=== PATIENT | male | born 1950 | race Caucasian/White ===

== ENCOUNTER 2021-10-29 07:28 | Emergency (ER) | payer OTHER ==
--- OUTSIDE RECORDS SUMMARY | 2021-10-29 07:30 | XMS REPORT | Continuity of Care Document ---
:1950 Author Organization [facility] t Address [address] Thakkar [address] [place] [id number] Care Team Providers Name Role Phone Unavailable Unavailable Unavailable Problems This patient has no known problems. Allergies, Adverse Reactions, Alerts This patient has no known allergies or adverse reactions. Medications This patient has no known medications. Procedures This patient has no known procedures. Encounters Start End Encounter Admission Attending Care Care Encounter Source Date/Time Date/Time Type Type Clinicians Facility Department ID 2020-10-06 2020-10-06 Outpatient [facility] [id number] 00:00:00 00:00:[address] 2020-09-15 2020-09-15 Outpatient [facility] [id number] 00:00:00 00:00:[address] Results This patient has no known results.
--- NOTE | 2021-10-29 08:35 | EDPHYS ---
Physician Documentation [facility] Name: Jayjay Serna Age: 70 yrs Sex: Male : 1950 Arrival Date: 10/29/2021 Time: 07:29 Bed 5 Private MD: Conrado Rao V ED Physician Clay Medina HPI: 10/29 08:26 This 70 yrs old Male presents to ER via Ambulatory with complaints of Blurred kerri Vision. 08:26 to the right eye, blurry vision, no diplopia. Onset: The symptoms/episode kerri began/occurred just prior to arrival. Duration: the symptoms last a few minutes, occurred when went outside , resolved when back inside. Aggravated by nothing. Alleviated by covering eye. Associated signs and symptoms: Pertinent positives: dizziness. pt has cataract surgery on left eye, not right , blood glucose high this morning, went outside, right eye got blurry in the cold, resoled when went inside. Patient wears glasses. Severity of symptoms: At their worst the symptoms were mild in the emergency department the symptoms have resolved and did so just prior to arrival. Historical: - Allergies: 07:38 No Known Allergies; ww - PMHx: 07:38 Hypertensive disorder; Diabetes mellitus; Cerebrovascular accident; ww Hypercholesterolemia; - PSHx: 07:38 abdominal fistula; ww - Immunization history:: Adult Immunizations up to date. - Social history:: Smoking status: Patient denies any tobacco usage or history of. - Family history:: not pertinent. ROS: 08:26 Constitutional: Negative for fever, chills, and weight loss, ENT: Negative for injury, kerri pain, and discharge, Neck: Negative for injury, pain, and swelling, Cardiovascular: Negative for chest pain, palpitations, and edema, Respiratory: Negative for shortness of breath, cough, wheezing, and pleuritic chest pain, Abdomen/GI: Negative for abdominal pain, nausea, vomiting, diarrhea, and constipation, Back: Negative for injury and pain, : Negative for injury, bleeding, discharge, and swelling, MS/Extremity: Negative for injury and deformity, Skin: Negative for injury, rash, and discoloration, Neuro: Negative for headache, weakness, numbness, tingling, and seizure, Psych: Negative for depression, anxiety, suicide ideation, homicidal ideation, and hallucinations, Allergy/Immunology: Negative for hives, rash, and allergies, Endocrine: Negative for neck swelling, polydipsia, polyuria, polyphagia, and marked weight changes, Hematologic/Lymphatic: Negative for swollen nodes, abnormal bleeding, and unusual bruising. 08:26 Eyes: Positive for blurry vision, pain, photophobia, visual disturbance, of the iris of right eye. Exam: 08:26 Constitutional: This is a well developed, well nourished patient who is awake, alert, kerri and in no acute distress. Head/Face: Normocephalic, atraumatic. Eyes: Pupils equal round and reactive to light, extra-ocular motions intact. Lids and lashes normal. Conjunctiva and sclera are non-icteric and not injected. Cornea within normal limits. Periorbital areas with no swelling, redness, or edema. ENT: Nares patent. No nasal discharge, no septal abnormalities noted. Tympanic membranes are normal and external auditory canals are clear. Oropharynx with no redness, swelling, or masses, exudates, or evidence of obstruction, uvula midline. Mucous membranes moist. Neck: Trachea midline, no thyromegaly or masses palpated, and no cervical lymphadenopathy. Supple, full range of motion without nuchal rigidity, or vertebral point tenderness. No Meningismus. Chest/axilla: Normal chest wall appearance and motion. Nontender with no deformity. No lesions are appreciated. Cardiovascular: Regular rate and rhythm with a normal S1 and S2. No gallops, murmurs, or rubs. Normal PMI, no JVD. No pulse deficits. Respiratory: Lungs have equal breath sounds bilaterally, clear to auscultation and percussion. No rales, rhonchi or wheezes noted. No increased work of breathing, no retractions or nasal flaring. Abdomen/GI: Soft, non-tender, with normal bowel sounds. No distension or tympany. No guarding or rebound. No evidence of tenderness throughout. Back: No spinal tenderness. No costovertebral tenderness. Full range of motion. Male : Normal genitalia with no discharge or lesions. Skin: Warm, dry with normal turgor. Normal color with no rashes, no lesions, and no evidence of cellulitis. MS/ Extremity: Pulses equal, no cyanosis. Neurovascular intact. Full, normal range of motion. Neuro: Awake and alert, GCS 15, oriented to person, place, time, and situation. Cranial nerves II-XII grossly intact. Motor strength 5/5 in all extremities. Sensory grossly intact. Cerebellar exam normal. Normal gait. Psych: Awake, alert, with orientation to person, place and time. Behavior, mood, and affect are within normal limits. 08:26 Eyes: Periorbital structures: appear normal, no acute changes, no abrasion, no cellulitis, no contusion, no ecchymosis, no erythema, no laceration, no swelling, Pupils: equal, round, and reactive to light and accomodation, Extraocular movements: intact throughout, Conjunctiva: normal, no acute changes, no chemosis, no excoriation, no exudate, no injection, no subconjunctival hemorrhage no abnormal tearing, Corneas: no acute changes, no evidence of abrasion, no foreign body, Sclera: no appreciated abnormality, no acute changes, Anterior chamber: normal, no acute changes, Lids and lashes: appear normal, no acute changes, Visual stubbs: are intact, no acute changes, Nystagmus: is not appreciated. Vital Signs: 07:37 BP 157 / 73; Pulse 82; Resp 18; Temp 98.1; Pulse Ox 98% on R/A; Weight 97.52 kg; Height ww 6 ft. 0 in. (182.88 cm); Pain 0/10; 07:55 BP 144 / 72; Pulse 74; Resp 20 S; Pulse Ox 98% on R/A; Pain 0/10; jg9 07:37 Body Mass Index 29.16 (97.52 kg, 182.88 cm) MDM: 07:49 Patient medically screened. [facility] 08:31 Differential diagnosis: Acute glaucoma in right eye. Data reviewed: vital signs, nurses kerri notes. Data interpreted: monitor and storage bin tender: not applicable for this patient encounter. rate is 74 beats/min. Counseling: I had a detailed discussion with the patient and/or guardian regarding: the historical points, exam findings, and any diagnostic results supporting the discharge/admit diagnosis. 03 08:33 Order name: Glucose, Ancillary Testing EDMS 10/29 08:14 Order name: Blood Glucose Level; Complete Time: 08:33 kerri Administered Medications: No medications were administered Point of Care Testing: Blood Glucose: 08:21 Blood Glucose: 178 mg/dL; jg9 Ranges: Critical Glucose Levels:Adult <50 mg/dl or >400 mg/dl <40 mg/dl or >180 mg/dl Disposition Summary: 10/29/21 08:35 Discharge Ordered Location: Home kerri Problem: new kerri Symptoms: have improved kerri Condition: Stable kerri Diagnosis - Other visual disturbances - blurry vision kerri - Type 2 diabetes mellitus with hyperglycemia kerri Followup: kerri - With: Conrado Rao MD - When: 2 - 3 days - Reason: Recheck today's complaints, Continuance of care, Re-evaluation by your physician Discharge Instructions: - Discharge Summary Sheet kerri - Blurred Vision, Adult kerri - Hyperglycemia kerri - Visual Disturbances kerri - Blood Glucose Monitoring, Adult kerri - Diabetes Mellitus and Exercise kerri Forms: - Medication Reconciliation Form kerri - Thank You Letter kerri - Antibiotic Education kerri - Prescription Opioid Use kerri Signatures: Dispatcher [employer] Clay Lucero MD MD cha Wood, Whitney RN RN ww
--- NOTE | 2021-10-29 08:35 | ER ---
Nurse's Notes [facility] Name: Jayjay Serna Age: 70 yrs Sex: Male : 1950 Arrival Date: 10/29/2021 Time: 07:29 Bed 5 Private MD: Conrado Rao V Diagnosis: Other visual disturbances-blurry vision;Type 2 diabetes mellitus with hyperglycemia Presentation: 10/29 07:37 Chief complaint: Patient states: Blurry vision in right eye with double vision that ww started this morning after going outside. Coronavirus screen: Vaccine status: Client denies travel out of the [place] in the last 14 days. Ebola Screen: Patient denies travel to an Ebola-affected area in the 21 days before illness onset. Initial Sepsis Screen: Does the patient meet any 2 criteria? No. Patient's initial sepsis screen is negative. Does the patient have a suspected source of infection? No. Patient's initial sepsis screen is negative. Risk Assessment: Do you want to hurt yourself or someone else? Patient reports no desire to harm self or others. Onset of symptoms was October 29, 2021. 07:37 Method Of Arrival: Ambulatory ww 07:37 Acuity: LIYAH 3 ww Triage Assessment: 07:38 General: Appears in no apparent distress. Behavior is calm, cooperative. Pain: Denies ww pain. EENT: Eyes closing right eye due to being dizzy. Neuro: Level of Consciousness is awake, alert, obeys commands, Oriented to person, place, time, situation, Moves all extremities. Gait is steady, Speech is normal, Facial symmetry appears normal. Cardiovascular: Capillary refill < 3 seconds. Respiratory: Airway is patent Respiratory effort is even, unlabored, Respiratory pattern is regular, symmetrical. GI: No signs and/or symptoms were reported involving the gastrointestinal system. : No signs and/or symptoms were reported regarding the genitourinary system. Derm:. Musculoskeletal: No signs and/or symptoms reported regarding the musculoskeletal system. Historical: - Allergies: 07:38 No Known Allergies; ww - PMHx: 07:38 Hypertensive disorder; Diabetes mellitus; Cerebrovascular accident; ww Hypercholesterolemia; - PSHx: 07:38 abdominal fistula; ww - Immunization history:: Adult Immunizations up to date. - Social history:: Smoking status: Patient denies any tobacco usage or history of. - Family history:: not pertinent. Screenin:01 Abuse screen: Denies threats or abuse. Denies injuries from another. Nutritional jg9 screening: No deficits noted. Tuberculosis screening: No symptoms or risk factors identified. Fall Risk None identified. Assessment: 08:00 Reassessment: No changes from previously documented assessment. Neuro: Reports blurred jg9 vision in outer aspect of conjuctiva of right eye, iris of right eye and inner aspect of conjuctiva of right eye since this morning Denies. Vital Signs: 07:37 BP 157 / 73; Pulse 82; Resp 18; Temp 98.1; Pulse Ox 98% on R/A; Weight 97.52 kg; Height ww 6 ft. 0 in. (182.88 cm); Pain 0/10; 07:55 BP 144 / 72; Pulse 74; Resp 20 S; Pulse Ox 98% on R/A; Pain 0/10; jg9 07:37 Body Mass Index 29.16 (97.52 kg, 182.88 cm) ED Course: 07:29 Patient arrived in ED. as 07:29 Conrado Rao MD is Private Physician. as 07:38 Triage completed. ww 07:38 Arm band placed on left wrist. ww 07:49 Clay Medina MD is Attending Physician. [facility] 08:00 Rabia Ferrera, RN is Primary Nurse. jg9 08:01 Patient has correct armband on for positive identification. sitting in recliner. jg9 08:33 Conrado Rao MD is Referral Physician. kerri 08:51 No provider procedures requiring assistance completed. jg9 08:52 IV discontinued. jg9 Administered Medications: No medications were administered Point of Care Testing: Blood Glucose: 08:21 Blood Glucose: 178 mg/dL; jg9 Ranges: Outcome: 08:35 Discharge ordered by . kerri 08:51 Discharged to home ambulatory. jg9 08:51 Condition: stable 08:51 Discharge instructions given to patient, Instructed on discharge instructions, follow up and referral plans. Demonstrated understanding of instructions, follow-up care. 08:52 Patient left the ED. jg9 Signatures: Clay Medina MD MD cha Martinez, Amelia as Gilmore, Jennifer, RN RN jg9 Joann Arnold RN RN ww
[2021-10-29 09:04] VITALS: TEMP 98.1; O2SAT 98
[2021-10-29 09:06] VITALS: BP 144/72
== END 2021-10-29 08:52 | disposition home or self-care (01) ==
LOC: ER 07:28
DX: E11.65 Type 2 diabetes mellitus with hyperglycemia (principal); I10 Essential (primary) hypertension; Z86.73 Personal history of transient ischemic attack (TIA), and cerebral infarction without residual deficits
CPT/HCPCS: 82947; 99282

== ENCOUNTER 2023-01-23 15:00 | Observation (INO) | payer OTHER ==
[2023-01-23 15:57] LABS: Absolute Lymphocytes (CBC) 1.9 K/uL (0.7-4.9); Hematocrit 42.7 % (39.6-49.0); Lymphocytes % 20.3 % (15.3-44.8); MCV 88.3 fL (80-100); MPV 7.7 fL (7.6-11.3); Protime INR 0.98; RBC Red Blood Cell Count 4.83 M/uL (4.33-5.43)
[2023-01-23 16:13] LABS: ALT/SGPT 63 U/L (16-61); AST/SGOT 37 U/L (15-37); Albumin 4.1 g/dL (3.4-5.0); Alkaline Phosphatase 95 U/L (45-117); BUN Blood Urea Nitrogen 19 mg/dL (7-18); Bicarbonate 28 mEq/L (21-32); Bilirubin Direct < 0.1 mg/dL (0-0.2); Bilirubin Indirect, Calculated ND mg/dL (0.2-0.8); Bilirubin Total 0.3 mg/dL (0.2-1.0); Glomerular Filtration Rate 62 ml/min (=/>90); Glucose Level 326 mg/dL (74-106); NT PRO-BNP 20 pg/mL (<125); Potassium 4.1 mEq/L (3.5-5.1); Protein, Total 8.1 g/dL (6.4-8.2); Sodium Level 132 mEq/L (136-145); Troponin High Sensitivity 13.6 pg/mL (<58.9)
--- NOTE | 2023-01-23 16:13 | RAD REPORT ---
EXAM DESCRIPTION: RAD - Chest Single View - 01/23/2023 4:02 pm CLINICAL HISTORY: SOB Chest pain. COMPARISON: Chest Pa And Lat (2 Views) dated 02/22/2016; CHEST SINGLE VIEW dated 12/14/2009; CHEST PA A ND LAT 2 VIEW dated 10/09/1998 FINDINGS: Portable technique limits examination quality. The lungs are grossly clear. The heart is normal in size. No displaced fractures. IMPRESSION: No acute intrathoracic process suspected.
[2023-01-23 16:18] LABS: Specific Gravity 1.019 (1.005-1.030); Urine Bacteria None Seen /HPF (<20); Urine Bilirubin NEGATIVE (Negative); Urine Blood Negative (Negative); Urine Clarity Clear (Clear); Urine Color Yellow (Yellow); Urine Glucose 4+ (Over) (Negative); Urine Protein NEGATIVE (Negative); Urine RBC <5 /HPF (None Seen); Urine Urobilinogen Normal (Normal)
[2023-01-23] MEDS ORDERED: NA CHLORIDE 0.9% 1,000 ML ONE ×2 (16:55→22:18)
[2023-01-23] MEDS ORDERED: INSULIN -REGULAR HUMAN 50 UNIT/0.5 ML ML ONE (16:57)
--- NOTE | 2023-01-23 18:05 | RAD REPORT ---
EXAM DESCRIPTION: CT - Head Brain Wo Cont - 01/23/2023 5:47 pm CLINICAL HISTORY: HEADACHE Headache, drowsiness COMPARISON: Head Brain Wo Cont dated 02/22/2016 TECHNIQUE: All CT scans are performed using dose optimization technique as appropriate and may inclu de automated exposure control or mA/KV adjustment according to patient size. FINDINGS: No intracranial hemorrhage, hydrocephalus or extra-axial fluid collection.Moderate brain a trophy.No areas of brain edema or evidence of midline shift. Heavy right vertebral atherosclerosis. F ocal oblong soft tissue hyperdensity superior to the right orbit. The paranasal sinuses and mastoids are clear. The calvarium is intact. IMPRESSION: No acute intracranial abnormality.
--- NOTE | 2023-01-23 18:09 | RAD REPORT ---
EXAM DESCRIPTION: CT - Chest For Pe Angio - 01/23/2023 5:53 pm CLINICAL HISTORY: Chest pain. SOB COMPARISON: No comparisons TECHNIQUE: CT angiogram of the pulmonary arteries was performed with MIP. All CT scans are performed using dose optimization technique as appropriate and may include automated exposure control or mA/KV adjustment according to patient size. FINDINGS: No evidence of pulmonary thromboembolism. No acute aortic finding demonstrated. The lungs are mildly emphysematous but clear. No significant pericardial or pleural fluid. No concerning bony finding. IMPRESSION: No evidence of pulmonary thromboembolism. Mild diffuse COPD.
[2023-01-23] MEDS ORDERED: ACETAMINOPHEN 500 MG TAB ONE (18:18)
[2023-01-23] MEDS ORDERED: HYDRALAZINE HCL 20 MG/ML VIAL ONE (18:52)
--- NOTE | 2023-01-23 19:04 | RAD REPORT ---
EXAM DESCRIPTION: US - Extrem Venous W Compress John - 01/23/2023 6:58 pm CLINICAL HISTORY: PAIN Bilateral leg edema and swelling. COMPARISON: No comparisons TECHNIQUE: Real-time sonographic interrogation of the left and right lower extremity deep venous sys tems was performed. FINDINGS: Normal compressibility, flow augmentation, phasic flow and spontaneous flow is identified in both the left and right lower extremity deep venous systems. IMPRESSION: No sonographic evidence of left or right lower extremity deep venous thrombosis.
[2023-01-23] MEDS ORDERED: LORazepam 2 MG/ML VIAL ONE (20:02)
[2023-01-23] MEDS ORDERED: cloNIDine HCL 0.1 MG TAB ONE (20:52)
--- NOTE | 2023-01-23 21:13 | EDPHYS ---
Physician Documentation [facility] Name: Jayjay Serna Age: 72 yrs Sex: Male : 1950 Arrival Date: 01/23/2023 Time: 15:00 Bed 14 Private MD: Conrado Rao V ED Physician Clay Medina HPI: 01/23 15:25 This 72 yrs old Male presents to ER via Ambulatory with complaints of Shortness Of cp Breath. 15:25 The patient has shortness of breath with light activity. Onset: The symptoms/episode cp began/occurred last week, hx of surgery, bilateral eye lift, this past Sunday. 15:25 Duration: The symptoms are continuous, and are steadily getting worse. Associated signs cp and symptoms: Pertinent positives: headache, Pertinent negatives: chest pain, productive cough, fever, vomiting. Severity of symptoms: in the emergency department the symptoms are unchanged despite home interventions. Historical: - Allergies: 15:13 No Known Allergies; aa5 - Home Meds: 21:23 amlodipine oral [Active]; carvedilol oral [Active]; losartan oral [Active]; Plavix Oral mb9 [Active]; Aspirin Oral [Active]; - PMHx: 15:13 Cerebrovascular accident; diabetes mellitus; Hypercholesterolemia; Hypertensive aa5 disorder; - PSHx: 15:13 abdominal fistula; aa5 - Immunization history:: Adult Immunizations unknown. - Social history:: Smoking status: Patient denies any tobacco usage or history of. ROS: 15:30 Constitutional: Negative for body aches, chills, fever, poor PO intake. cp 15:30 Eyes: Negative for injury, pain, redness, and discharge. cp 15:30 ENT: Negative for drainage from ear(s), ear pain, sore throat, difficulty swallowing, difficulty handling secretions. 15:30 Cardiovascular: Negative for chest pain, edema, palpitations. 15:30 Respiratory: Positive for shortness of breath, on exertion. Negative for cough, wheezing. 15:30 Abdomen/GI: Negative for abdominal pain, vomiting, diarrhea, constipation. 15:30 : Negative for urinary symptoms. 15:30 Skin: Negative for rash. 15:30 Neuro: Positive for headache, Negative for altered mental status, numbness, speech changes, syncope, weakness. 15:30 All other systems are negative. Exam: 15:35 Constitutional: The patient appears in no acute distress, alert, awake, cp non-diaphoretic, non-toxic, well developed, well nourished, overweight 15:35 Head/Face: Normocephalic, atraumatic. cp 15:35 Eyes: Periorbital structures: cellulitis, is not appreciated, swelling, that is moderate, bilaterally, ecchymosis, that is moderate, bilaterally, Pupils: equal, round, and reactive to light and accomodation, Extraocular movements: intact throughout, Conjunctiva: normal, no exudate, no injection, Sclera: no appreciated abnormality, Lids and lashes: appear normal, bilaterally. 15:35 ENT: External ear(s): are unremarkable, Nose: is normal, Mouth: Lips: moist, Oral mucosa: pink and intact, moist, Posterior pharynx: is normal, airway is patent, no erythema, no exudate. 15:35 Neck: ROM/movement: is normal, is supple, without pain, no range of motions limitations, no meningismus, no nuchal rigidity. 15:35 Chest/axilla: Inspection: normal. 15:35 Cardiovascular: Rate: normal, Rhythm: regular, Edema: is not appreciated, JVD: is not appreciated. 15:35 Respiratory: the patient does not display signs of respiratory distress, Respirations: normal, no use of accessory muscles, no retractions, labored breathing, is not present, Breath sounds: are clear throughout, no decreased breath sounds, no stridor, no wheezing. 15:35 Abdomen/GI: Inspection: abdomen appears normal, Palpation: abdomen is soft and non-tender, in all quadrants. 15:35 Back: pain, is absent, ROM is normal. 15:35 Skin: cellulitis, is not appreciated, no rash present. 15:35 Neuro: Orientation: to person, place \T\ time. Mentation: is normal, Cerebellar function: Romberg testing is negative, Motor: moves all fours, strength is normal, Sensation: is normal. 15:43 ECG was reviewed by the Attending Physician. cp 20:57 ECG was reviewed by the Attending Physician. cp 21:53 ECG was reviewed by the Attending Physician. cp Vital Signs: 15:13 BP 163 / 82; Pulse 95; Resp 16 S; Temp 97.3(TE); Pulse Ox 97% on R/A; Weight 104.33 kg aa5 (R); Height 6 ft. 0 in. (R); 15:50 BP 166 / 89; Pulse 74; Resp 18; Pulse Ox 95% on R/A; mb9 17:12 BP 165 / 84; Pulse 70; Resp 18; Pulse Ox 98% on R/A; mb9 18:42 BP 181 / 71; Pulse 93; Resp 18; Pulse Ox 99% on R/A; mb9 19:50 BP 195 / 70; Pulse 90; Resp 18; Pulse Ox 98% on R/A; mb9 20:41 BP 199 / 79; Pulse 115; Resp 18; Pulse Ox 99% on R/A; mb9 21:22 BP 186 / 86; Pulse 84; Resp 18; Pulse Ox 98% on R/A; mb9 22:00 BP 188 / 81; Pulse 105; Resp 18; Pulse Ox 100% on R/A; mb9 23:08 BP 117 / 57; Pulse 76; Resp 16; Pulse Ox 95% on R/A; Pain 0/10; mb9 23:19 BP 134 / 64; Pulse 84; Resp 16; Pulse Ox 95% on R/A; mb9 15:13 Body Mass Index 31.19 (104.33 kg, 182.88 cm) aa5 23:08 Pain Scale: Adult mb9 MDM: 15:14 Patient medically screened. cp 16:00 Differential diagnosis: Anemia Anxiety Reaction asthma, Bronchitis CHF exacerbation, cp Chronic Obstructive Pulmonary Disease Myocardial Infarction pneumonia, Pneumothorax pulmonary edema, Pulmonary Embolism Sepsis Unstable Angina. 21:55 Data reviewed: vital signs, nurses notes, lab test result(s), EKG, radiologic studies, cp CT scan, plain films. 21:55 Consideration of Admission/Observation Patient was admitted/placed on observation. cp Management of patient was discussed with the following: Primary Care Provider: DR Rao called and msg left on voicemail \T\[id number]. I considered the following discharge prescriptions or medication management in the emergency department Medications were administered in the Emergency Department. See MAR. Independent interpretation of the following test(s) in the Emergency Department EKG: See my EKG interpretation above. Counseling: I had a detailed discussion with the patient and/or guardian regarding: the historical points, exam findings, and any diagnostic results supporting the discharge/admit diagnosis, lab results, radiology results. 01/23 15:22 Order name: Basic Metabolic Panel; Complete Time: 16:33 cp 01/23 16:33 Interpretation: Normal except: NA 132; GLUC 326; BUN 19; GFR 62. cp 01/23 15:22 Order name: CBC with Diff; Complete Time: 16:33 cp 01/23 19:01 Interpretation: Reviewed. 01/23 15:22 Order name: LFT's; Complete Time: 16:33 cp 01/23 19:01 Interpretation: Normal except: ALT 63; GLOB 4.0; A/G 1.0. cp 01/23 15:22 Order name: Magnesium; Complete Time: 16:33 cp 01/23 15:22 Order name: NT PRO-BNP; Complete Time: 16:33 cp 01/23 15:22 Order name: PT-INR; Complete Time: 16:33 cp 01/23 15:22 Order name: Troponin HS; Complete Time: 16:33 cp 01/23 15:22 Order name: Urinalysis W/Microscopic; Complete Time: 16:33 01/23 19:01 Interpretation: Normal except: UGLUC 4+ (Over). cp 01/23 16:38 Order name: D-Dimer; Complete Time: 17:28 cp 01/23 17:29 Interpretation: Reviewed. 01/23 16:38 Order name: LAB Add On 01/23 18:53 Order name: Glucose, Ancillary Testing; Complete Time: 19:00 EDMS 01/23 19:00 Interpretation: Abnormal: GLUC,ANCIL 249. cp 01/23 21:56 Order name: Troponin HS cp 01/23 22:38 Order name: Glucose, Ancillary Testing EDMS 01/23 23:13 Order name: Basic Metabolic Panel EDMS 01/23 23:13 Order name: Basic Metabolic Panel EDMS 01/23 23:13 Order name: CBC with Automated Diff EDMS 01/23 23:14 Order name: CBC with Automated Diff EDMS 01/23 23:14 Order name: Troponin High Sensitivity EDMS 01/23 23:14 Order name: Troponin High Sensitivity EDMS 01/23 23:14 Order name: Troponin High Sensitivity EDMS 01/24 01:35 Order name: Glucose, Ancillary Testing EDMS 01/24 05:54 Order name: Glucose, Ancillary Testing EDMS 01/24 07:33 Order name: Glucose, Ancillary Testing EDMS 01/24 11:17 Order name: Glucose, Ancillary Testing EDMS 01/24 16:12 Order name: Glucose, Ancillary Testing EDMS 01/23 15:22 Order name: XRAY Chest (1 view); Complete Time: 16:33 cp / 15:22 Order name: CT Head Brain wo Cont; Complete Time: 18:09 cp / 16:44 Order name: US Extremity Venous W Compression John; Complete Time: 19:14 cp 01/23 19:15 Interpretation: Report reviewed. cp 01/23 17:34 Order name: CT Chest For PE Angio; Complete Time: 18:42 cp 01/23 15:22 Order name: EKG; Complete Time: 15:22 cp 01/23 23:13 Order name: EKG Electrocardiogram EDMS 01/23 23:13 Order name: EKG Electrocardiogram EDMS 01/23 23:13 Order name: EKG Electrocardiogram EDMS 01/23 23:13 Order name: EKG Electrocardiogram EDMS 01/23 15:22 Order name: Cardiac monitoring; Complete Time: 15:27 cp 01/23 15:22 Order name: EKG - Nurse/Tech; Complete Time: 15:48 cp 01/23 15:22 Order name: IV Saline Lock; Complete Time: 15:48 cp 01/23 15:22 Order name: Labs collected and sent; Complete Time: 15:48 cp 01/23 15:22 Order name: O2 Per Protocol; Complete Time: 15:27 cp 01/23 15:22 Order name: O2 Sat Monitoring; Complete Time: 15:27 cp 01/23 20:51 Order name: EKG - Nurse/Tech; Complete Time: 20:57 cp 01/23 22:02 Order name: Accucheck Blood Glucose; Complete Time: 22:53 cp EC:43 Rate is 87 beats/min. Rhythm is regular. IA interval is normal. QRS interval is normal. cp QT interval is normal. T waves are Inverted in lead aVR. Interpreted by me. Reviewed by me. 20:57 Rate is 91 beats/min. Rhythm is regular. IA interval is normal. QRS interval is normal. cp QT interval is normal. T waves are Inverted in lead aVR. Interpreted by me. Reviewed by me. 21:53 Rate is 110 beats/min. Rhythm is regular. IA interval is normal. QRS interval is cp normal. QT interval is normal. T waves are Inverted in leads aVL, aVR. Interpreted by me. Reviewed by me. Administered Medications: 16:57 Drug: NS 0.9% IV 250 ml Route: IV; Rate: bolus; Site: right antecubital; mb9 16:57 Drug: Insulin Regular Human Sub-Q 10 units {Co-Signature: db (Megan Washington RN).} mb9 Route: Sub-Q; Site: right upper arm; 18:18 Follow up: Response: No adverse reaction mb9 18:10 Drug: Acetaminophen PO 1000 mg Route: PO; mb9 18:43 Follow up: Response: No adverse reaction mb9 18:52 Drug: hydrALAZINE IVP 10 mg Route: IVP; Site: right antecubital; mb9 19:52 Follow up: Response: No adverse reaction mb9 20:00 Drug: Ativan IVP 0.5 mg Route: IVP; Site: right antecubital; mb9 20:36 Follow up: Response: No adverse reaction mb9 20:42 Not Given (Physician Discretion): cloNIDine PO 0.1 mg PO once cp 20:55 Drug: cloNIDine PO 0.2 mg Route: PO; mb9 21:22 Follow up: Response: No adverse reaction mb9 22:36 Drug: Labetalol IV 20 mg Route: IV; Rate: calculated rate; Site: right antecubital; mb9 22:53 Follow up: Response: No adverse reaction mb9 22:36 Drug: NS 0.9% IV 500 ml Route: IV; Rate: 100 ml/hr; Site: right antecubital; mb9 Disposition Summary: 01/23/23 21:56 Hospitalization Ordered Hospitalization Status: Observation cp Provider: Conrado Rao cp Condition: Stable(01/23/23 21:56) cp Problem: new(01/23/23 21:56) cp Symptoms: have improved(01/23/23 21:56) cp Bed/Room Type: Standard cp Location: Telemetry/MedSurg (observation)(01/24/23 16:15) [facility] Room Assignment: 423(01/24/23 16:15) [facility] Diagnosis - Hypertensive heart disease without heart failure(01/23/23 21:56) cp Forms: - Medication Reconciliation Form cp - SBAR form cp Signatures: Dispatcher [employer] EDMS Claudia Cornell RN RN Nathalia Shields, RN RN aa5 Clay Muse PA PA cp Angel Ambrocio, RN RN ja1 Carolina, Grace Bustamante, RN RN mb9 Megan Washington RN db Corrections: (The following items were deleted from the chart) 21:39 21:13 Home cp cp 21:39 21:13 new cp cp 21:39 21:13 have improved cp cp 21:39 21:13 Stable cp cp 21:39 21:13 Headache cp cp 21:39 21:13 Hypertensive heart disease without heart failure cp cp 21:39 21:13 Shortness of breath cp cp 21:39 21:13 Diabetes mellitus due to underlying condition with hyperglycemia cp 23:07 21:56 Telemetry/MedSurg (observation) [facility] : 21:56 cp 01/24 16:15 01/23 23:07 [facility] ER HOLD [facility] 01/24 16:15 01/23 23:07 ERHOLD- [facility] 01/25 15:42 01/24 15:25 This 72 yrs old Male presents to ER via Ambulatory with complaints of cp Shortness Of Breath. cp 01/25 15:42 01/24 15:25 The patient has shortness of breath with light activity, cp cp 01/25 15:42 01/24 15:25 Onset: The symptoms/episode began/occurred last week, hx of surgery, cp bilateral eye lift, this past Sunday, cp 01/25 16:38 06 15:25 Associated signs and symptoms: Pertinent negatives: chest pain, productive cp cough, fever, vomiting, cp
--- NOTE | 2023-01-23 21:13 | ER ---
Nurse's Notes [facility] Name: Jayjay Serna Age: 72 yrs Sex: Male : 1950 Arrival Date: 01/23/2023 Time: 15:00 Bed 14 Private MD: Conrado Rao V Diagnosis: Hypertensive heart disease without heart failure Presentation: 01/23 15:13 Chief complaint: Patient states: eye lift sx on Sunday, today has been feeling SOB and aa5 with headache. 15:13 Method Of Arrival: Ambulatory aa5 15:13 Coronavirus screen: shortness of breath. Ebola Screen: [facility] denies [facility] in the 21 days before illness onset. Initial Sepsis Screen: Does the patient meet any 2 criteria? No. Patient's initial sepsis screen is negative. Does the patient have a suspected source of infection? No. Patient's initial sepsis screen is negative. Risk Assessment: Do you want to hurt yourself or someone else? Patient reports no desire to harm self or others. Onset of symptoms was January 23, 2023. 15:13 Acuity: LIYAH 3 aa5 Triage Assessment: 01/24 18:02 Respiratory: the patient has mild shortness of breath. sg5 Historical: - Allergies: 01/23 15:13 No Known Allergies; aa5 - Home Meds: 21:23 amlodipine oral [Active]; carvedilol oral [Active]; losartan oral [Active]; Plavix Oral mb9 [Active]; Aspirin Oral [Active]; - PMHx: 15:13 Cerebrovascular accident; diabetes mellitus; Hypercholesterolemia; Hypertensive aa5 disorder; - PSHx: 15:13 abdominal fistula; aa5 - Immunization history:: Adult Immunizations unknown. - Social history:: Smoking status: Patient denies any tobacco usage or history of. Screenin:[address] [facility] ED Fall Risk Assessment (Adult) History of falling in the last 3 months, mb9 including since admission No falls in past 3 months (0 pts) Confusion or Disorientation No (0 pts) Intoxicated or Sedated No (0 pts) Impaired Gait No (0 pts) Mobility Assist Device Used No (0 pt) Altered Elimination No (0 pt) Score/Fall Risk Level 0 - 2 = Low Risk Oriented to surroundings, Maintained a safe environment, Educated pt \\T\\ family on fall prevention, incl call for assistance when getting out of bed. Abuse screen: Denies threats or abuse. Nutritional screening: No deficits noted. Tuberculosis screening: No symptoms or risk factors identified. Assessment: 15:49 General: Appears in no apparent distress. Behavior is calm, cooperative. Pain: mb9 Complains of pain in head Pain does not radiate. Pain currently is 5 out of 10 on a pain scale. Quality of pain is described as aching, throbbing, Pain began suddenly, Is continuous. Neuro: Leblanc Agitation-Sedation Scale (RASS): 0 - Alert and Calm Level of Consciousness is awake, alert, obeys commands, Oriented to person, place, time, situation, Appropriate for age Reports headache. Cardiovascular: Heart tones S1 S2 present Patient's skin is warm and dry. Rhythm is regular. Respiratory: Reports shortness of breath Airway is patent Respiratory effort is even, unlabored, Respiratory pattern is regular, symmetrical, Breath sounds are clear bilaterally. GI: Abdomen is round non-distended, Bowel sounds present X 4 quads. Abd is soft and non tender X 4 quads. Derm: Skin is pink, warm \\T\\ dry. Bruising that is yellow, on right eye and left eye. Musculoskeletal: Range of motion: intact in all extremities. 17:13 Reassessment: No changes from previously documented assessment. Patient and/or family mb9 updated on plan of care and expected duration. Pain level reassessed. Patient is alert, oriented x 3, equal unlabored respirations, skin warm/dry/pink. 18:08 Reassessment: pt states, "my headache hasn't gone away. Can I get something for it?" mb9 ERP notified. 18:43 Reassessment: ultrasound at bedside. mb9 19:49 Reassessment: pt states "I feel SOB and my headache is coming back." ERP notified about mb9 pts status and high BP. 21:22 Reassessment: Patient and/or family updated on plan of care and expected duration. Pain mb9 level reassessed. Patient is alert, oriented x 3, equal unlabored respirations, skin warm/dry/pink. Patient states feeling better. Patient states symptoms have improved. 22:25 Reassessment: Patient and/or family updated on plan of care and expected duration. Pain mb9 level reassessed. Patient is alert, oriented x 3, equal unlabored respirations, skin warm/dry/pink. 23:49 Reassessment: Report given to DRE Flores. mb9 Vital Signs: 15:13 BP 163 / 82; Pulse 95; Resp 16 S; Temp 97.3(TE); Pulse Ox 97% on R/A; Weight 104.33 kg aa5 (R); Height 6 ft. 0 in. (R); 15:50 BP 166 / 89; Pulse 74; Resp 18; Pulse Ox 95% on R/A; mb9 17:12 BP 165 / 84; Pulse 70; Resp 18; Pulse Ox 98% on R/A; mb9 18:42 BP 181 / 71; Pulse 93; Resp 18; Pulse Ox 99% on R/A; mb9 19:50 BP 195 / 70; Pulse 90; Resp 18; Pulse Ox 98% on R/A; mb9 20:41 BP 199 / 79; Pulse 115; Resp 18; Pulse Ox 99% on R/A; mb9 21:22 BP 186 / 86; Pulse 84; Resp 18; Pulse Ox 98% on R/A; mb9 22:00 BP 188 / 81; Pulse 105; Resp 18; Pulse Ox 100% on R/A; mb9 23:08 BP 117 / 57; Pulse 76; Resp 16; Pulse Ox 95% on R/A; Pain 0/10; mb9 23:19 BP 134 / 64; Pulse 84; Resp 16; Pulse Ox 95% on R/A; mb9 15:13 Body Mass Index 31.19 (104.33 kg, 182.88 cm) aa5 23:08 Pain Scale: Adult mb9 ED Course: 15:03 Patient arrived in ED. mr 15:03 Conrado Rao MD is Private Physician. mr 15:12 Arm band placed on. aa5 15:13 Clay Muse PA is PHCP. cp 15:14 Clay Medina MD is Attending Physician. cp 15:15 Triage completed. aa5 15:25 Grace Figueroa, DRE is Primary Nurse. mb9 15:26 Placed in gown. Bed in low position. Call light in reach. Side rails up X 1. Client mb9 placed on continuous cardiac and pulse oximetry monitoring. NIBP monitoring applied. cafeteria monitor on. 15:26 No provider procedures requiring assistance completed. mb9 15:48 Basic Metabolic Panel Sent. mb9 15:48 CBC with Diff Sent. mb9 15:48 LFT's Sent. mb9 15:48 Magnesium Sent. mb9 15:48 NT PRO-BNP Sent. mb9 15:49 PT-INR Sent. mb9 15:49 Troponin HS Sent. mb9 16:04 XRAY Chest (1 view) In Process Unspecified. EDMS 16:44 LAB Add On Sent. aa5 16:44 D-Dimer Sent. aa5 17:48 CT Head Brain wo Cont In Process Unspecified. EDMS 17:55 CT Chest For PE Angio In Process Unspecified. EDMS 18:59 US Extremity Venous W Compression John In Process Unspecified. EDMS 21:11 Conrado Rao MD is Referral Physician. cp 21:56 Conrado Rao MD is Hospitalizing Provider. cp 23:02 Troponin HS Sent. mb9 23:03 Patient admitted, IV remains in place. mb9 Administered Medications: 16:57 Drug: NS 0.9% IV 250 ml Route: IV; Rate: bolus; Site: right antecubital; mb9 16:57 Drug: Insulin Regular Human Sub-Q 10 units {Co-Signature: db (Megan Washington RN).} mb9 Route: Sub-Q; Site: right upper arm; 18:18 Follow up: Response: No adverse reaction mb9 18:10 Drug: Acetaminophen PO 1000 mg Route: PO; mb9 18:43 Follow up: Response: No adverse reaction mb9 18:52 Drug: hydrALAZINE IVP 10 mg Route: IVP; Site: right antecubital; mb9 19:52 Follow up: Response: No adverse reaction mb9 20:00 Drug: Ativan IVP 0.5 mg Route: IVP; Site: right antecubital; mb9 20:36 Follow up: Response: No adverse reaction mb9 20:42 Not Given (Physician Discretion): cloNIDine PO 0.1 mg PO once cp 20:55 Drug: cloNIDine PO 0.2 mg Route: PO; mb9 21:22 Follow up: Response: No adverse reaction mb9 22:36 Drug: Labetalol IV 20 mg Route: IV; Rate: calculated rate; Site: right antecubital; mb9 22:53 Follow up: Response: No adverse reaction mb9 22:36 Drug: NS 0.9% IV 500 ml Route: IV; Rate: 100 ml/hr; Site: right antecubital; mb9 Medication: 15:26 VIS not applicable for this client. mb9 Outcome: 21:13 Discharge ordered by . cp 21:56 Decision to Hospitalize by Provider. serena 01/24 01:26 Admitted to ER Hold. Please see [facility] for further documentation. aa9 Condition: stable Instructed on the need for admit. 18:03 Patient left the ED. sg5 Signatures: Dispatcher [employer] Grace Ochoa CorneliusNathalia, RN RN aa5 Clay Muse PA PA Sandra Contreras RN RN aa9 Grace Figueroa RN RN mb9 Radha Schwartz RN RN sg5 Megan Washington RN db Corrections: (The following items were deleted from the chart) 01/23 18:09 18:04 Reassessment: No changes from previously documented assessment. Patient and/or mb9 family updated on plan of care and expected duration. Pain level reassessed. Patient is alert, oriented x 3, equal unlabored respirations, skin warm/dry/pink. mb9
[2023-01-23] MEDS ORDERED: LABETALOL 20 MG/4ML SYRINGE IV ONE (22:18)
[2023-01-23] MEDS ORDERED: ACETAMINOPHEN 500 MG TAB PO PRN (23:03)
[2023-01-23] MEDS ORDERED: D50W 25 GM/50 ML SYRINGE IV PRN (23:03)
[2023-01-23] MEDS ORDERED: GLUCAGON 1 MG/VIAL IM PRN (23:03)
[2023-01-23] MEDS ORDERED: ONDANSETRON 4 MG/2 ML VIAL IV PRN (23:03)
[2023-01-23] MEDS ORDERED: D10W 125 ML IV PRN (23:40)
[2023-01-24] MEDS: INSULIN -REGULAR HUMAN 50 UNIT/0.5 ML ML SQ SCH ×6 (01:26→21:00)
[2023-01-24] MEDS ORDERED: INSULIN -REGULAR HUMAN 50 UNIT/0.5 ML ML ONE ×5 (01:55→16:47)
[2023-01-24 05:21] VITALS: BMI 31.1
--- NOTE | 2023-01-24 07:15 | EKG ---
Test Date: 2023-01-23 Test Time: 15:37:14 Metal Spray Operator: MB MEASUREMENT RESULTS: Intervals: Rate: 87 AL: 184 QRSD: 98 QT: 376 QTc: 452 [place]: P: 67 AL: 184 QRS: 56 T: 101 INTERPRETIVE STATEMENTS: Normal sinus rhythm Incomplete right bundle branch block Possible Inferior infarct, age undetermined Cannot rule out Anterior infarct, age undetermined Abnormal ECG Compared to ECG 02/22/2016 17:33:57 Myocardial infarct finding now present Electronically Signed On 01-24-23 07:14:00 CDT by Ajay Negron
--- NOTE | 2023-01-24 07:15 | EKG ---
Test Date: 2023-01-23 Test Time: 20:51:45 Survey Compiler: MB MEASUREMENT RESULTS: Intervals: Rate: 92 [place]: 178 QRSD: 98 QT: 370 QTc: 457 [place]: P: 69 [place]: 178 QRS: 71 T: 79 INTERPRETIVE STATEMENTS: Sinus rhythm with premature atrial complexes Incomplete right bundle branch block Cannot rule out Anterior infarct, age undetermined Abnormal ECG Compared to ECG 01/23/2023 20:50:14 No significant changes Electronically Signed On 01-24-23 07:13:54 CDT by Ajay Negron
--- NOTE | 2023-01-24 07:15 | EKG ---
Test Date: 2023-01-23 Test Time: 20:50:14 Nut Sorter: MB MEASUREMENT RESULTS: Intervals: Rate: 91 [place]: 182 QRSD: 96 QT: 376 QTc: 462 [place]: P: 72 [place]: 182 QRS: 74 T: 77 INTERPRETIVE STATEMENTS: Sinus rhythm with premature atrial complexes Incomplete right bundle branch block Cannot rule out Anterior infarct, age undetermined Abnormal ECG Compared to ECG 01/23/2023 15:37:14 Atrial premature complex(es) now present Myocardial infarct finding still present Electronically Signed On 01-24-23 07:13:55 CDT by Ajay Negron
[2023-01-24] MEDS: ALBUTEROL 2.5 MG/3 ML NEB SOL NEB SCH ×3 (08:21→19:25)
[2023-01-24] MEDS: INSULIN GLARGINE 100 UNIT/ML SQ SCH ×2 (08:35→21:36)
[2023-01-24] MEDS ORDERED: INSULIN LISPRO 100 UNIT/1 ML ONE (08:39)
[2023-01-24] MEDS ORDERED: INSULIN GLARGINE 100 UNIT/ML SQ ONE (08:39)
[2023-01-24] MEDS ORDERED: ASPIRIN EC 81 MG TAB PO ONE (08:46)
[2023-01-24 08:48] LABS: Absolute Lymphocytes (CBC) 1.7 K/uL (0.7-4.9); Hematocrit 38.9 % (39.6-49.0); Lymphocytes % 16.1 % (15.3-44.8); MCV 88.1 fL (80-100); MPV 7.6 fL (7.6-11.3); RBC Red Blood Cell Count 4.41 M/uL (4.33-5.43)
[2023-01-24] MEDS: DULERA 100/5 (MOMETASONE/FORMOTEROL) INHALER IH SCH ×2 (08:54→21:35)
[2023-01-24] MEDS ORDERED: ASPIRIN EC 81 MG TAB PO SCH (09:00)
[2023-01-24 09:05] LABS: Potassium 4.3 mEq/L (3.5-5.1); Troponin High Sensitivity 13.8 pg/mL (<58.9)
[2023-01-24] MEDS: carvediloL 3.125 MG TAB PO SCH ×2 (14:00→21:35)
[2023-01-24] MEDS ORDERED: hydroCHLOROthiazide 12.5 MG CAP PO SCH (14:00)
[2023-01-24] MEDS ORDERED: LOSARTAN POTASSIUM 50 MG TABLET PO SCH (14:00)
[2023-01-24] MEDS ORDERED: ALBUTEROL 2.5 MG/3 ML NEB SOL ONE (14:32)
--- NOTE | 2023-01-24 14:33 | EKG ---
Test Date: 2023-01-23 Test Time: 21:44:12 Novelty Chain Maker: MB MEASUREMENT RESULTS: Intervals: Rate: 107 OR: 168 QRSD: 94 QT: 374 QTc: 499 [place]: P: 78 OR: 168 QRS: 83 T: 71 INTERPRETIVE STATEMENTS: Sinus tachycardia with premature supraventricular complexes Anterior infarct, age undetermined Abnormal ECG Compared to ECG 01/23/2023 20:51:45 Sinus rhythm no longer present Incomplete right bundle-branch block no longer present Myocardial infarct finding still present Electronically Signed On 01-24-23 14:32:21 CDT by Foster Varghese
[2023-01-24] MEDS ORDERED: LOSARTAN POTASSIUM 50 MG TABLET ONE (14:34)
[2023-01-24] MEDS ORDERED: FENOFIBRATE 48 MG TAB PO SCH (15:00)
[2023-01-24] MEDS ORDERED: GLIMEPIRIDE 2 MG TABLET PO SCH (17:00)
--- NOTE | 2023-01-24 17:59 | P.HP ---
Certification for Inpatient Patient admitted to: Inpatient With expected LOS: >2 Midnights Practitioner: I am a practitioner with admitting privileges, knowledge of patient current condition, hospital course, and medical plan of care. Services: Services provided to patient in accordance with Admission requirements found in Title 42 Section 412.3 of the Code of Federal Regulations Patient History Date of Service: 01/24/23 Reason for admission: SHORT OF BREATH History of Present Illness: PARVIZ IS A DIABETIC WITH POOR COMPLIANCE AND REMOTE HISTORY OF SMOKING. HE HAD EYE SURGERY BOTH SIDES AND HAS BEEN SHORT OF BREATH SINCE. HE HAS NO CHEST PAIN. Allergies No Known Allergies Allergy (Unverified 02/22/16 17:17) Home medications list reviewed: Yes Home Medications: Amlodipine Besylate 10 mg PO DAILY 02/22/16 Aspirin 81 mg PO DAILY 02/22/16 Glimepiride 8 mg PO DAILY 02/22/16 Insulin Detemir [Levemir] 84 units SQ BID 02/22/16 Clopidogrel Bisulfate [Plavix*] 75 mg PO DAILY #30 tablet 02/25/16 Carvedilol [Coreg] 3.125 mg PO BID 01/24/23 Cholecalciferol (Vitamin D3) [D3-50] 25 mcg PO DAILY 01/24/23 Fenofibrate Nanocrystallized [Fenofibrate] 54 mg PO DAILY 01/24/23 Folic Acid 0.8 mg PO DAILY 01/24/23 Losartan/Hydrochlorothiazide [Losartan-Hctz 100-12.5 mg Tab] 1 tab PO DAILY 0 01/24/23 Rosuvastatin [Crestor*] 5 mg PO DAILY 01/24/23 Vitamin B Complex [B-Complex] 1 tab PO DAILY 01/24/23 - Past Medical/Surgical History Has patient received pneumonia vaccine in the past: Yes Diabetic: Yes -: Diabetes -: Hypertension -: 18 inches of colon removed; Colon resection about 22 years ago -: Left Eye cauterized blood vessel - Family History Father -: Heart disease, Hypertension Mother -: Hypertension, Diabetes, Stroke - Social History Smoking Status: Never smoker Alcohol use: Yes CD- Drugs: No Caffeine use: Yes Review of Systems 10-point ROS is otherwise unremarkable General: Weakness Physical Examination - Vital Signs Temperature: 97.8 F Blood Pressure: 170/75 Pulse: 84 Respirations: 17 Pulse Ox (%): 97 - Physical Exam General: Oriented x3, Mild distress HEENT: Atraumatic, PERRLA, Mucous membr. moist/pink, EOMI, Sclerae nonicteric Neck: Supple, 2+ carotid pulse no bruit, No LAD, Without JVD or thyroid abnormality Respiratory: Clear to auscultation bilaterally, Normal air movement Cardiovascular: Regular rate/rhythm, Normal S1 S2 Gastrointestinal: Normal bowel sounds, No tenderness Musculoskeletal: No tenderness Integumentary: No rashes Neurological: Normal gait, Normal speech, Normal strength at 5/5 x4 extr, Normal tone, Normal affect Lymphatics: No axilla or inguinal lymphadenopathy Assessment and Plan - Problems (Diagnosis) (1) Dyspnea Current Visit: Yes Status: Acute Plan: THIS IS NEW RULE OUT CAD I CALLED DR. NOLASCO TO DISCUSS. PE STUDY NEG. NO PE, NO CHF, NO PNEUMONIA. START ALB NEBS TO RULE OUT ASTHMA , LATE ONSET NO WHEEZING. 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 STABLE FOR NOW. - Advance Directives Does patient have a Living Will: No Does patient have a Durable POA for Healthcare: No
[2023-01-24] MEDS ORDERED: cloNIDine HCL 0.1 MG TAB PO PRN (18:13)
[2023-01-24] MEDS ORDERED: FUROSEMIDE 20 MG/ 2ML VIAL IV ONE (18:38)
[2023-01-24] MEDS ORDERED: INSULIN DETEMIR 100 UNIT/ML SQ SCH (21:00)
[2023-01-25] MEDS: ALBUTEROL 2.5 MG/3 ML NEB SOL NEB SCH (01:30)
[2023-01-25] MEDS ORDERED: GLIMEPIRIDE 2 MG TABLET PO SCH (08:00)
[2023-01-25 08:13] VITALS: BP 154/72; TEMP 97.9
[2023-01-25] MEDS ORDERED: CLOPIDOGREL 75 MG TABLET PO SCH (09:00)
[2023-01-25] MEDS ORDERED: FENOFIBRATE 48 MG TAB PO SCH (09:00)
[2023-01-25] MEDS ORDERED: AMLODIPINE 10 MG TAB PO SCH (09:00)
[2023-01-25] MEDS ORDERED: carvediloL 3.125 MG TAB PO SCH (09:00)
[2023-01-25] MEDS ORDERED: hydroCHLOROthiazide 12.5 MG CAP PO SCH (09:00)
[2023-01-25] MEDS ORDERED: HOME MED 1 EA UNK (Losartan/Hydrochlorothiazide [Losartan-Hctz 100-12.5 Mg Tab] Tablet) PO SCH (09:00)
[2023-01-25] MEDS ORDERED: ROSUVASTATIN 10 MG TAB PO SCH (09:00)
[2023-01-25] MEDS ORDERED: HOME MED 1 EA UNK [ROSUVASTATIN 5 MG TAB] PO SCH (09:00)
[2023-01-25] MEDS ORDERED: ASPIRIN 81 MG CHEWABLE TABLET PO SCH (09:00)
[2023-01-25] MEDS ORDERED: VITAMIN D 1000 UNIT TAB PO SCH (09:00)
[2023-01-25] MEDS ORDERED: HOME MED 1 EA UNK (Glimepiride [Glimepiride] 4 MG Tablet) PO SCH (09:00)
[2023-01-25] MEDS ORDERED: HOME MED 1 EA UNK (Cholecalciferol (Vitamin D3) [D3-50] 1,250 MCG Capsule) PO SCH (09:00)
[2023-01-25] MEDS ORDERED: FOLIC ACID 1 MG TABLET PO SCH (09:00)
[2023-01-25] MEDS ORDERED: LOSARTAN POTASSIUM 50 MG TABLET PO SCH (09:00)
[2023-01-25] MEDS ORDERED: SPIRONOLACTONE 25 MG TABLET PO SCH (09:00)
[2023-01-25] MEDS ORDERED: FUROSEMIDE 20 MG/ 2ML VIAL IV SCH (09:00)
[2023-01-25 16:50] VITALS: O2SAT 98
--- NOTE | 2023-01-25 21:28 | P.DS ---
Admission Date: 01/23/23 Discharge Date: 01/25/23 Disposition: ROUTINE DISCHARGE Reason for Admission: SHORT OF BREATH - Problems (1) Dyspnea Status: Acute (2) Diabetic vasculopathy Status: Chronic Brief History of Present Illness: PARVIZ IS A DIABETIC WITH POOR COMPLIANCE AND REMOTE HISTORY OF SMOKING. HE HAD EYE SURGERY BOTH SIDES AND HAS BEEN SHORT OF BREATH SINCE. HE HAS NO CHEST PAIN. Hospital Course: JOVANNI HAD POST EYE SURGERY DYSPNEA. PE IS RULED OUT. HE HAS NO SIGNS OF CHF OR CAD. HE IMROVED ON ALB NEBS. I ORDERED ALB INHALER AND SYMBIOCRT INHALER. HE MAY HAS LATE ONSET ASTHMA. HE IS NOT A SMOKER. Vital Signs/Physical Exam: Temp Pulse Resp BP Pulse Ox 97.9 F 78 18 154/72 H 100 01/25/23 08:00 01/25/23 08:00 01/25/23 08:00 01/25/23 08:00 01/25/23 08:00 Laboratory Data at Discharge: WBC 10.80 thou/uL (4.3-10.9) 01/24/23 08:31 Hgb 13.5 g/dL (13.6-17.9) L D 01/24/23 08:31 Hct 38.9 % (39.6-49.0) L 01/24/23 08:31 Plt Count 291 thou/uL (152-406) 01/24/23 08:31 PT 10.8 SECONDS (9.5-12.5) 01/23/23 15:44 INR 0.98 01/23/23 15:44 Sodium 134 mEq/L (136-145) L 01/24/23 08:31 Potassium 4.3 mEq/L (3.5-5.1) 01/24/23 08:31 BUN 17 mg/dL (7-18) 01/24/23 08:31 Creatinine 1.12 mg/dL (0.70-1.30) 01/24/23 08:31 Glucose 217 mg/dL (74-106) H 01/24/23 08:31 Magnesium 2.0 mg/dL (1.6-2.4) 01/23/23 15:44 Total Bilirubin 0.3 mg/dL (0.2-1.0) 01/23/23 15:44 AST 37 U/L (15-37) 01/23/23 15:44 ALT 63 U/L (16-61) H 01/23/23 15:44 Alkaline Phosphatase 95 U/L (45-117) 01/23/23 15:44 Home Medications: Amlodipine Besylate 10 mg PO DAILY 02/22/16 Aspirin 81 mg PO DAILY 02/22/16 Glimepiride 8 mg PO DAILY 02/22/16 Insulin Detemir [Levemir] 84 units SQ BID 02/22/16 Clopidogrel Bisulfate [Plavix*] 75 mg PO DAILY #30 tablet 02/25/16 Carvedilol [Coreg] 3.125 mg PO BID 01/24/23 Cholecalciferol (Vitamin D3) [D3-50] 25 mcg PO DAILY 01/24/23 Fenofibrate Nanocrystallized [Fenofibrate] 54 mg PO DAILY 01/24/23 Folic Acid 0.8 mg PO DAILY 01/24/23 Losartan/Hydrochlorothiazide [Losartan-Hctz 100-12.5 mg Tab] 1 tab PO DAILY 01/24/23 Rosuvastatin [Crestor*] 5 mg PO DAILY 01/24/23 Vitamin B Complex [B-Complex] 1 tab PO DAILY 01/24/23 Followup: Conrado Rao MD [Primary Care Provider] - (Call to schedule an appointment)
== END 2023-01-25 08:50 | disposition home or self-care (01) ==
LOC: ER 15:00 → ERHOLD 23:01 → 4TH 01-24 17:24
PROVIDERS: ADMIT Internal Medicine; ATTEND Internal Medicine
DX: R06.00 Dyspnea, unspecified (principal); E11.59 Type 2 diabetes mellitus with other circulatory complications; Z91.148 Patient's other noncompliance with medication regimen for other reason; Z98.890 Other specified postprocedural states
CPT/HCPCS: 93005 ×4; 85025 ×2; 81001; 80048 ×2; 36415; 83735; 85610; 82947 ×9; 85379; 80076; 84484 ×4; 83880; 70450; 71275; 71045; 93970; 94640; 94760 ×3; 96375; 96372; 96374; 99285; Q9967; J1815 ×8; J3535; J0360; J1940; J7613 ×4; J7030 ×2; G0378